=== PATIENT | female | born 1940 | race Hispanic/Latino ===

== ENCOUNTER 2018-02-01 17:19 | Inpatient (IN) | payer MEDICARE, MEDICAID ==
[2018-02-01] MEDS ORDERED: Cefepime IV 2 gm in NS 2 GM/100 ML BAG IVPB STA (17:33)
[2018-02-01] MEDS ORDERED: Sodium Chloride 0.9% 1,000 ML IV STA ×3 (17:34→18:46)
[2018-02-01] MEDS: Albuterol-Ipratrop 3 mg / 0.5 (3 ml) UD IH SCH ×3 (17:50→18:28)
--- NOTE | 2018-02-01 17:52 | RAD ---
HISTORY: Sepsis Patient COMPARISON: CT chest without contrast from 12/12/2016. FINDINGS: LUNGS: The lungs are well inflated. There is mild pulmonary venous congestion. No focal consolidation PLEURA: No significant pleural effusion identified, no pneumothorax apparent. CARDIOVASCULAR: Normal. OSSEOUS STRUCTURES: No significant abnormalities. VISUALIZED UPPER ABDOMEN: Normal. OTHER FINDINGS: None. IMPRESSION: No active pulmonary disease.
[2018-02-01 18:04] LABS: RBC 4.05 10^6/uL (3.5-6.1); WHITE BLOOD COUNT 6.9 10^3/ul (4.5-11.0)
[2018-02-01 18:05] LABS: BASO # 0.03 K/mm3 (0.0-2.0); BASO % 0.4 % (0.0-3.0); EOS # 0.2 (0.0-0.7); EOS % 2.9 % (1.5-5.0); GRAN # 4.07 (1.4-6.5); GRAN % 58.7 % (50.0-68.0); HEMOGLOBIN 12.8 g/dL (12.0-16.0); LYMPH # 1.9 (1.2-3.4); MEAN CELL VOLUME 95.8 fl (80.0-105.0); MEAN CORPUSCULAR HEMOGLOBIN 31.6 pg (25.0-35.0); MEAN PLATELET VOLUME 10.3 fl (7.0-11.0); MONO # 0.7 (0.1-0.6); RED CELL DISTRIBUTION WIDTH 12.7 % (11.5-14.5)
[2018-02-01 18:10] LABS: ALB/GLOB RATIO 1.4 (1.1-1.8); ALBUMIN 3.9 g/dL (3.0-4.8); ALT/SGPT 39 U/L (7-56); AST/SGOT 34 U/L (14-36); BLOOD UREA NITROGEN 23 mg/dL (7-21); CALCIUM 9.1 mg/dL (8.4-10.5); GFR AFRICAN-AMERICAN > 60; GFR NON-AFRICAN AMERICAN 54; INR 1.11 (0.93-1.08); PROTHROMBIN TIME 12.7 SECONDS (9.4-12.5)
[2018-02-01 18:21] LABS: B-TYPE NATRIURETIC PEPTIDE 135 pg/mL (0-450); TROPONIN I < 0.01 ng/mL
[2018-02-01 18:30] LABS: VENOUS BLOOD GAS BASE EXCESS -7.4 mmol/L (0.0-2.0); VENOUS BLOOD GAS PO2 217 mm/Hg (30-55)
[2018-02-01 18:32] LABS: VENOUS BLOOD PH 7.17 (7.32-7.43)
--- NOTE | 2018-02-01 18:43 | ED PDOC ---
Arrival/HPI - General Historian: Family (daughter at bedside) - Critical Care Critical Care Minutes: 30 minutes - History of Present Illness Time/Duration: < month (3 weeks) Symptom Onset: Gradual Symptom Course: Unchanged Context: Home - General Time Seen by Provider: 02/01/18 17:24 - History of Present Illness Narrative History of Present Illness (Text): 02/01/18 18:38 77 year old female, whose history includes dementia, hypertension, and COPD, presents to the Emergency department due to fatigue, dizziness, and multiple falls over the last 3 weeks, as per daughter who is at bedside. Patient has also been coughing more than her baseline COPD cough. Patient has been on Prednisone intermittently for the cough. Today, patient was seen at Dr. Trinidad ' office and had her blood pressure measured to be 84/50; EMS repeated blood pressure and found it to be 110/57. While in the Emergency department, the patient is currently coughing. Patient denies any fever, chills, chest pain, shortness of breath, nausea, vomiting, diarrhea, urinary symptoms, back pain, neck pain, headache, or any other complaints. PMD: Dr. Trinidad (Bernardino Reis) Past Medical History - Provider Review Nursing Documentation Reviewed: Yes - Infectious Disease Hx of Infectious Diseases: None - Cardiac Hx Cardiac Disorders: Yes Hx Hypertension: Yes - Pulmonary Hx Respiratory Disorders: No - Neurological Hx Neurological Disorder: Yes Hx Dementia: Yes (memory loss/pt's daughter Shaila Huff is POA) - HEENT Hx HEENT Disorder: No - Renal Hx Renal Disorder: No - Endocrine/Metabolic Hx Endocrine Disorders: No - Hematological/Oncological Hx Blood Disorders: No - Integumentary Hx Dermatological Disorder: No - Musculoskeletal/Rheumatological Hx Musculoskeletal Disorders: Yes Hx Herniated Disk: Yes - Gastrointestinal Hx Gastrointestinal Disorders: No - Genitourinary/Gynecological Hx Genitourinary Disorders: Yes Hx Incontinence: Yes (urinary) - Psychiatric Hx Psychophysiologic Disorder: Yes Hx Depression: Yes Hx Substance Use: No - Past Surgical History Past Surgical History: No Previous - Anesthesia Hx Anesthesia: No - Suicidal Assessment Feels Threatened In Home Enviroment: No Family/Social History - Physician Review Nursing Documentation Reviewed: Yes Family/Social History: Unknown Family HX Smoking Status: Former Smoker Hx Alcohol Use: No Hx Substance Use: No Allergies/Home Meds Allergies/Adverse Reactions: Allergies No Known Allergies Allergy (Verified 02/01/18 17:31) Home Medications: Home Meds Medication Instructions Recorded Confirmed Donepezil HCl [Aricept] 10 mg PO DAILY 05/15/14 03/23/16 Multivitamin/Iron/Folic Acid 1 tab PO DAILY 06/20/15 03/23/16 [Centrum Complete Multivit Tab] Memantine HCl [Namenda] 10 mg PO DAILY 03/23/16 03/23/16 Review of Systems - Physician Review All systems were reviewed & negative as marked: Yes - Review of Systems Constitutional: Fatigue. absent: Fevers, Night Sweats Respiratory: Cough. absent: SOB Cardiovascular: absent: Chest Pain Gastrointestinal: absent: Diarrhea, Nausea, Vomiting Genitourinary Female: absent: Dysuria Musculoskeletal: absent: Back Pain, Neck Pain Neurological: Dizziness. absent: Headache Physical Exam Vital Signs Reviewed: Yes Temperature: Afebrile Blood Pressure: Hypotensive Pulse: Regular Respiratory Rate: Normal Appearance: Positive for: Well-Appearing, Non-Toxic, Comfortable, Other (obese) Pain Distress: None Mental Status: Positive for: Alert and Oriented X 3 - Systems Exam Head: Present: Atraumatic, Normocephalic Pupils: Present: PERRL Extroacular Muscles: Present: EOMI Conjunctiva: Present: Normal Mouth: Present: Moist Mucous Membranes Neck: Present: Normal Range of Motion Respiratory/Chest: Present: Wheezes (diffuse). No: Retracting Cardiovascular: Present: Regular Rate and Rhythm, Normal S1, S2. No: Murmurs Abdomen: No: Tenderness, Distention, Peritoneal Signs Back: Present: Normal Inspection Upper Extremity: Present: Normal Inspection. No: Cyanosis, Edema Lower Extremity: Present: Normal Inspection. No: Edema Neurological: Present: GCS=15, CN II-XII Intact, Speech Normal Skin: Present: Warm, Dry, Normal Color. No: Rashes Psychiatric: Present: Alert, Oriented x 3, Normal Insight, Normal Concentration Vital Signs Temp Pulse Resp BP Pulse Ox 02/01/18 23:05 87 20 117/44 L 92 L 02/01/18 21:50 78 18 121/47 L 92 L 02/01/18 19:50 84 22 114/43 L 02/01/18 18:47 74 18 121/56 L 97 02/01/18 18:32 67 18 108/44 L 100 05/24/18 18:20 64 20 112/51 L 100 02/01/18 17:54 98.3 F 66 18 79/42 L 93 L Medical Decision Making - Critical Care Critical Care Minutes: 30 minutes ED Course and Treatment: my only involvement in this case was to place admission order 02/01/18 20:57 (Dileep Nichols) 02/01/18 18:47 Impression: 77 year old female presents to the Emergency department due to fatigue, dizziness, increased coughing, and multiple falls for the last 3 weeks. Differential Diagnosis included but are not limited to: COPD. Pneumonia, rule out sepsis. Plan: -- EKG -- Blood culture, urine culture -- Urinalysis -- ABG -- Cefepime, Solumedrol, Sodium Chloride IV fluids -- Reassess and disposition Progress Notes: Patient's blood pressures stable after 3 Liters of NS. Abx were given early due to possible sepsis. CXR was negative for PNA. Patient improved but still having COPD symptoms. Will admit to hospitalized service for Hypotension and COPD. (Bernardino Reis) - Lab Interpretations Microbiology Results: Microbiology Results 02/01/18 18:10 Blood Blood Culture - Final NO GROWTH AFTER 5 DAYS 02/01/18 18:10 Blood Gram Stain - Final TEST NOT PERFORMED 02/01/18 17:40 Blood Blood Culture - Final NO GROWTH AFTER 5 DAYS 02/01/18 17:40 Blood Gram Stain - Final TEST NOT PERFORMED Lab Results: 02/01/18 17:42 02/01/18 17:42 Lab Results 02/01/18 19:30: pCO2 42, pO2 57.0 L, HCO3 24.3, ABG pH 7.37, ABG Total CO2 25.6 , ABG O2 Saturation 94.5 L, ABG O2 Content 15.4, ABG Base Excess -1.0, ABG Hemoglobin 11.9, ABG Carboxyhemoglobin 2.0 H, POC ABG HHb (Measured) 5.3 H, ABG Methemoglobin 0.7, ABG O2 Capacity 16.3, Hgb O2 Saturation 91.9 L, FiO2 21.0 02/01/18 17:52: pO2 217 H, VBG pH 7.17 L*, VBG pCO2 60.0, VBG HCO3 21.9, VBG Total CO2 23.7, VBG O2 Sat (Calc) 99.7 H, VBG Base Excess -7.4 L, Glucose 166 H , Lactate 1.9, FiO2 21.0, Sodium 119.0 L*, Chloride 102.0 02/01/18 17:42: Sodium 141, Potassium 4.0, Chloride 102, Carbon Dioxide 27, Anion Gap 16, BUN 23 H, Creatinine 1.0, Est GFR ( Amer) > 60, Est GFR ( Non-Af Amer) 54, Random Glucose 159 H, Calcium 9.1, Phosphorus 3.3, Magnesium 2.1, Total Bilirubin 0.5, AST 34, ALT 39, Alkaline Phosphatase 81, Troponin I < 0.01, NT-Pro-B Natriuret Pep 135, Total Protein 6.7, Albumin 3.9, Globulin 2.8, Albumin/Globulin Ratio 1.4 02/01/18 17:42: PT 12.7 H, INR 1.11 H, APTT 33.0 02/01/18 17:42: Procalcitonin < 0.05 L 02/01/18 17:42: WBC 6.9, RBC 4.05, Hgb 12.8, Hct 38.8, MCV 95.8, MCH 31.6, MCHC 33.0, RDW 12.7, Plt Count 245, MPV 10.3, Gran % 58.7, Lymph % (Auto) 28.0, [place] % (Auto) 10.0 H, Eos % (Auto) 2.9, Baso % (Auto) 0.4, Gran # 4.07, Lymph # (Auto ) 1.9, [place] # (Auto) 0.7 H, Eos # (Auto) 0.2, Baso # (Auto) 0.03 - RAD Interpretation Narrative RAD Interpretations (Text): 02/01/2018 17:50:15 Chest X-ray FINDINGS: LUNGS: The lungs are well inflated. There is mild pulmonary venous congestion. No focal consolidation PLEURA: No significant pleural effusion identified, no pneumothorax apparent. CARDIOVASCULAR: Normal. OSSEOUS STRUCTURES: No significant abnormalities. VISUALIZED UPPER ABDOMEN: Normal. OTHER FINDINGS: None. IMPRESSION: No active pulmonary disease. (Bernardino Reis) Radiology Orders: 02/01/18 17:33 CHEST PORTABLE [RAD] Stat - Medication Orders Current Medication Orders: Discontinued Medications Acetaminophen (Tylenol 325mg Tab) 650 mg PO STAT STA Stop: 02/02/18 20:04 Last Admin: 02/02/18 20:16 Dose: 650 mg MAR Pain/Vitals Document 02/02/18 20:16 TTC (Rec: 02/02/18 20:16 TTC [id number]) Pain Reassessment Is This A Pain ReAssessment? No Presence of Pain Presence of Pain Yes Acetaminophen (Tylenol 325mg Tab) 650 mg PO ONCE ONE Stop: 02/03/18 11:50 Last Admin: 02/03/18 11:54 Dose: 650 mg MAR Pain/Vitals Document 02/03/18 11:54 VM (Rec: 02/03/18 11:55 VM [id number]) Presence of Pain Presence of Pain Yes Location Pain Location Body Site Back Alleviating Factors Medication Acetylcysteine (Acetylcysteine 20%) 1 ml IH ONCE ONE Stop: 02/02/18 12:51 Albuterol/Ipratropium (Duoneb 3 Mg/0.5 Mg (3 Ml) Ud) 3 ml IH Q15M [facility] Stop: 02/01/18 18:16 Last Admin: 02/01/18 18:28 Dose: 3 ml Albuterol/Ipratropium (Duoneb 3 Mg/0.5 Mg (3 Ml) Ud) 3 ml IH Q4H [facility] Stop: 02/02/18 03:46 Last Admin: 02/01/18 20:01 Dose: 3 ml Ciprofloxacin (Ciloxan 0.3% Ophth Soln) 2 drop OS Q4 [facility] Last Admin: 02/03/18 09:00 Dose: 2 drop Diazepam (Valium) 5 mg PO ONCE ONE PRN Reason: Protocol Stop: 02/03/18 02:42 Last Admin: 02/03/18 02:55 Dose: 5 mg Diphenhydramine HCl (Benadryl) 12.5 mg IVP ONCE ONE Stop: 02/02/18 04:46 Last Admin: 02/02/18 04:56 Dose: 12.5 mg IVP Administration Document 02/02/18 04:56 PD (Rec: 02/02/18 04:57 PD [id number]) Charges for Administration # of IVP Administrations 1 Donepezil HCl (Aricept) 10 mg PO DAILY [facility] Last Admin: 02/03/18 09:54 Dose: 10 mg Guaifenesin (Robitussin) 200 mg PO Q4H PRN PRN Reason: Cough and congestion Last Admin: 02/02/18 02:02 Dose: 200 mg Heparin Sodium (Porcine) (Heparin) 5,000 units SC Q8H KIKE PRN Reason: Protocol Last Admin: 02/03/18 05:00 Dose: 5,000 units Subcutaneous Administrations Document 02/03/18 05:00 TTC (Rec: 02/03/18 06:25 TTC [id number]) Charges for Administration # of Subcutaneous Administrations 1 Cefepime HCl (Maxipime 2gm) 2 gm in 100 mls @ 100 mls/hr IVPB STAT STA PRN Reason: Protocol Stop: 02/01/18 18:32 Last Admin: 02/01/18 18:14 Dose: 100 mls/hr eMAR Start Stop Document 02/01/18 18:14 [email or web address] (Rec: 02/01/18 18:14 [email or web address] [id number]) Intravenous Solution Start Date 02/01/18 Start Time 18:14 End Date 02/01/18 Sodium Chloride (Sodium Chloride 0.9%) 1,000 mls @ 999 mls/hr IV .Q1H1M STA Stop: 02/01/18 18:34 Last Admin: 02/01/18 18:13 Dose: 999 mls/hr eMAR Start Stop Document 02/01/18 18:13 [email or web address] (Rec: 02/01/18 18:13 [email or web address] [id number]) Intravenous Solution Start Date 02/01/18 Start Time 18:13 End Date 02/01/18 Sodium Chloride (Sodium Chloride 0.9%) 1,000 mls @ 999 mls/hr IV .Q1H1M STA Stop: 02/01/18 19:13 Last Admin: 02/01/18 19:26 Dose: 999 mls/hr eMAR Start Stop Document 02/01/18 19:26 [email or web address] (Rec: 02/01/18 19:27 [email or web address] [id number]) Intravenous Solution Start Date 02/01/18 Start Time 18:13 End Date 02/01/18 Sodium Chloride (Sodium Chloride 0.9%) 1,000 mls @ 999 mls/hr IV .Q1H1M STA Stop: 02/01/18 19:46 Last Admin: 02/01/18 19:27 Dose: 999 mls/hr eMAR Start Stop Document 02/01/18 19:27 [email or web address] (Rec: 02/01/18 19:27 [email or web address] [id number]) Intravenous Solution Start Date 02/01/18 Start Time 18:46 End Date 02/01/18 Cefepime HCl (Maxipime 1gm) 1 gm in 100 mls @ 100 mls/hr IVPB Q24H KIKE PRN Reason: Protocol Last Admin: 02/02/18 20:30 Dose: 100 mls/hr eMAR Start Stop Document 02/02/18 20:30 TTC (Rec: 02/02/18 22:10 TTC [id number]) Intravenous Solution Start Date 02/02/18 Start Time 20:30 End Date 02/02/18 End time 21:30 Total Infusion Time 60 Sodium Chloride (Sodium Chloride 0.9%) 1,000 mls @ 100 mls/hr IV .Q10H KIKE Last Admin: 02/02/18 10:29 Dose: 100 mls/hr eMAR Start Stop Document 02/02/18 10:29 [email or web address] (Rec: 02/02/18 10:29 [email or web address] [id number]) Intravenous Solution Start Date 02/02/18 Start Time 10:29 Memantine (Namenda) 10 mg PO DAILY KIKE Last Admin: 02/03/18 09:54 Dose: 10 mg Methylprednisolone (Solu-Medrol) 125 mg IVP STAT STA Stop: 02/01/18 17:35 Last Admin: 02/01/18 18:13 Dose: 125 mg IVP Administration Document 02/01/18 18:13 [email or web address] (Rec: 02/01/18 18:13 [email or web address] [id number]) Charges for Administration # of IVP Administrations 1 Methylprednisolone (Solu-Medrol) 40 mg IVP Q12H KIKE Last Admin: 02/02/18 20:30 Dose: 40 mg IVP Administration Document 02/02/18 20:30 TTC (Rec: 02/02/18 22:09 TTC [id number]) Charges for Administration # of IVP Administrations 1 Multivitamins/Minerals (Therapeutic-M Tab) 1 tab PO 0800 KIKE Last Admin: 02/03/18 09:54 Dose: 1 tab Oxycodone/Acetaminophen (Percocet 10/325 Mg Tab) 1 tab PO STAT STA Stop: 02/03/18 02:19 Last Admin: 02/03/18 02:26 Dose: 1 tab MAR Pain Assessment Document 02/03/18 02:26 [facility] (Rec: 02/03/18 02:26 [facility] [id number]) Pain Reassessment Is this a pain reassessment? No Sleep Is patient sleeping during reassessment? Yes Pain Scale Used Pain Scale Used Numeric Location Left, Right or Bilateral Bilateral Pain Location Body Site Back - Scribe Statement The provider has reviewed the documentation as recorded by the Scribe - Scribe Statement Irvin Piña Provider Scribe Attestation: All medical record entries made by the Scribe were at my direction and personally dictated by me. I have reviewed the chart and agree that the record accurately reflects my personal performance of the history, physical exam, medical decision making, and the department course for this patient. I have also personally directed, reviewed, and agree with the discharge instructions and disposition. (Bernardino Reis) Disposition/Present on Arrival - Present on Arrival Any Indicators Present on Arrival: No History of DVT/PE: No History of Uncontrolled Diabetes: No Urinary Catheter: No History Surgical Site Infection Following: None - Disposition Have Diagnosis and Disposition been Completed?: Yes Disposition Time: 19:00 Patient Plan: Admission - Disposition Diagnosis: COPD exacerbation Disposition: HOSPITALIZED Condition: GOOD
[2018-02-01] MEDS ORDERED: guaiFENesin 200 mg/10 ml Syrup UD PO PRN (19:31)
[2018-02-01 19:40] LABS: ARTERIAL BLOOD GAS HCO3 24.3 mmol/L (21-28); ARTERIAL BLOOD GAS HEMOGLOBIN 11.9 g/dL (11.7-17.4); ARTERIAL BLOOD GAS O2 CAPACITY 16.3 mL/dl (16-24); ARTERIAL BLOOD GAS O2 CONTENT 15.4 ML/dl (15-23); ARTERIAL BLOOD GAS O2 SAT 94.5 % (95-98); ARTERIAL BLOOD GAS PCO2 42 mm/Hg (35-45); ARTERIAL BLOOD GAS PH 7.37 (7.35-7.45); ARTERIAL BLOOD GAS TCO2 25.6 mmol.L (22-28)
[2018-02-01] MEDS ORDERED: Albuterol-Ipratrop 3 mg / 0.5 (3 ml) UD IH SCH (19:45)
[2018-02-01] MEDS: Sodium Chloride 0.9% 1,000 ML IV SCH (20:05)
[2018-02-01] MEDS: Cefepime 1gm in NS 100ml 1 GM/100 ML BAG IVPB SCH (20:06)
[2018-02-01] MEDS: MethylPREDNISolone 40 mg Vial IVP SCH (20:09)
--- NOTE | 2018-02-01 20:20 | CP.PCM.HP ---
<Erlin Woodward - Last Filed: 02/01/18 20:03> History of Present Illness - History of Present Illness History of Present Illness: HPI: Patient is a 77F with a PMH of Dementia and COPD who comes to the ED sent from her PMD office Dr. Trinidad after being found to have a SBP of 79. She was sent to the ED and was given 2L NS. After the 2L her pressure came up to an SBP of 121. Patient is pleasantly demented at baseline. Daughter is at bedside providing most of the history. Patient lives with her daughter who is the primary resident care coordinator. She goes to a adult day care daily but the daughter states since that time she has become more sick more frequent so they have decided to not return. She states that her mother has been having a productive cough for many years but has become worse recently. Was recently treated for CAP in Dr. Trinidad office. Denies any fever or chills. Denies any chest pain. No nausea or vomiting. One episode of diarrhea 2 weeks ago after treatment with the antibiotics. Has not noticed any increasing SOB. Occasionally loses continence. Patient has been falling as of late with a reported history of 4-5 falls in the past few weeks. Since that time she has been complaining of some back pain. Denies any saddle paresthesis. Patient does not have a history of poor oral intake and has a very good appetite. No other complaints at this time. Never hospitalized for COPD. ROS: HEENT: No headaches, hx of cataracts, no surgical intervention. No hearing problems. Runny Nose. No difficulty swallowing Heart: no chest pain Lungs: Cough productive sputum for years. Colorless. No SOB. GI: One episode of diarrhea after finishing antibiotic course 2 weeks ago. No nausea or vomiting. No abdominal pain : History of kidney stones and UTI. Occasional urinary incontinence Endo: No history of thyroid problems or diabetes MSK: Multiple falls recently. Since that time has been complaining of back pain. History of R. arm fracture that was never operated on Psych: History of depression PMD: Vivi PMH: Dementia, COPD, Depression, cataracts PSH: None FH: brother has diabetes, Mother had ovarian cancer SH: Previously heavy smoker for over 50 years. Denies alcohol and drug use All: Percocet makes the patient hallucinate Code Status: Patient has a living will but the daughter in not sure what it is. I told her to bring it in. Until that time the daughter would like her mother to be FULL CODE Present on Admission - Present on Admission Any Indicators Present on Admission: No Review of Systems - Review of Systems Review of Systems: per hpi Past Patient History - Infectious Disease Hx of Infectious Diseases: None - Past Social History Smoking Status: Former Smoker - CARDIAC Hx Cardiac Disorders: Yes Hx Hypertension: Yes - PULMONARY Hx Respiratory Disorders: No - NEUROLOGICAL Hx Neurological Disorder: Yes Hx Dementia: Yes (memory loss/pt's daughter Shaila Huff is POA) - HEENT Hx HEENT Problems: No - RENAL Hx Chronic Kidney Disease: No - ENDOCRINE/METABOLIC Hx Endocrine Disorders: No - HEMATOLOGICAL/ONCOLOGICAL Hx Blood Disorders: No - INTEGUMENTARY Hx Dermatological Problems: No - MUSCULOSKELETAL/RHEUMATOLOGICAL Hx Musculoskeletal Disorders: Yes Hx Herniated Disk: Yes - GASTROINTESTINAL Hx Gastrointestinal Disorders: No - GENITOURINARY/GYNECOLOGICAL Hx Genitourinary Disorders: Yes Hx Incontinence: Yes (urinary) - PSYCHIATRIC Hx Psychophysiologic Disorder: Yes Hx Depression: Yes Hx Substance Use: No - SURGICAL HISTORY Hx Surgeries: No - ANESTHESIA Hx Anesthesia: No Meds Allergies/Adverse Reactions: Allergies Allergy/AdvReac Type Severity Reaction Status Date / Time No Known Allergies Allergy Verified 02/01/18 17:31 Physical Exam - Constitutional Appears: Confused - Head Exam Head Exam: ATRAUMATIC, NORMAL INSPECTION, NORMOCEPHALIC - Eye Exam Eye Exam: EOMI, Normal appearance, PERRL Pupil Exam: NORMAL ACCOMODATION, PERRL - ENT Exam ENT Exam: Mucous Membranes Moist - Respiratory Exam Respiratory Exam: Rhonchi, NORMAL BREATHING PATTERN - Cardiovascular Exam Cardiovascular Exam: REGULAR RHYTHM - GI/Abdominal Exam GI & Abdominal Exam: Normal Bowel Sounds, Soft. absent: Distended, Tenderness - Extremities Exam Extremities exam: Positive for: normal inspection. Negative for: joint swelling , tenderness - Back Exam Back exam: NORMAL INSPECTION - Neurological Exam Neurological exam: Alert, CN II-XII Intact, Oriented x3 - Psychiatric Exam Psychiatric exam: Normal Affect, Normal Mood - Skin Skin Exam: Dry, Intact, Normal Color, Warm Results - Vital Signs Recent Vital Signs: Last Vital Signs Temp 98.3 F 02/01/18 17:54 Pulse 84 02/01/18 19:50 Resp 22 02/01/18 19:50 BP 114/43 L 02/01/18 19:50 Pulse Ox 97 02/01/18 18:47 - Labs Result Diagrams: 02/01/18 17:42 02/01/18 17:42 Labs: Laboratory Results - last 24 hr 02/01/18 02/01/18 02/01/18 17:42 17:42 17:42 WBC 6.9 RBC 4.05 Hgb 12.8 Hct 38.8 MCV 95.8 MCH 31.6 MCHC 33.0 RDW 12.7 Plt Count 245 MPV 10.3 Gran % 58.7 Lymph % (Auto) 28.0 [place] % (Auto) 10.0 H Eos % (Auto) 2.9 Baso % (Auto) 0.4 Gran # 4.07 Lymph # (Auto) 1.9 [place] # (Auto) 0.7 H Eos # (Auto) 0.2 Baso # (Auto) 0.03 PT 12.7 H INR 1.11 H APTT 33.0 pCO2 pO2 HCO3 ABG pH ABG Total CO2 ABG O2 Saturation ABG O2 Content ABG Base Excess ABG Hemoglobin ABG Carboxyhemoglobin POC ABG HHb (Measured) ABG Methemoglobin ABG O2 Capacity VBG pH VBG pCO2 VBG HCO3 VBG Total CO2 VBG O2 Sat (Calc) VBG Base Excess Hgb O2 Saturation Glucose Lactate FiO2 Sodium 141 Potassium 4.0 Chloride 102 Carbon Dioxide 27 Anion Gap 16 BUN 23 H Creatinine 1.0 Est GFR ( Amer) > 60 Est GFR (Non-Af Amer) 54 Random Glucose 159 H Calcium 9.1 Phosphorus 3.3 Magnesium 2.1 Total Bilirubin 0.5 AST 34 ALT 39 Alkaline Phosphatase 81 Troponin I < 0.01 NT-Pro-B Natriuret Pep 135 Total Protein 6.7 Albumin 3.9 Globulin 2.8 Albumin/Globulin Ratio 1.4 02/01/18 02/01/18 17:52 19:30 WBC RBC Hgb Hct MCV MCH MCHC RDW Plt Count MPV Gran % Lymph % (Auto) [place] % (Auto) Eos % (Auto) Baso % (Auto) Gran # Lymph # (Auto) [place] # (Auto) Eos # (Auto) Baso # (Auto) PT INR APTT pCO2 42 pO2 217 H 57.0 L HCO3 24.3 ABG pH 7.37 ABG Total CO2 25.6 ABG O2 Saturation 94.5 L ABG O2 Content 15.4 ABG Base Excess -1.0 ABG Hemoglobin 11.9 ABG Carboxyhemoglobin 2.0 H POC ABG HHb (Measured) 5.3 H ABG Methemoglobin 0.7 ABG O2 Capacity 16.3 VBG pH 7.17 L* VBG pCO2 60.0 VBG HCO3 21.9 VBG Total CO2 23.7 VBG O2 Sat (Calc) 99.7 H VBG Base Excess -7.4 L Hgb O2 Saturation 91.9 L Glucose 166 H Lactate 1.9 FiO2 21.0 21.0 Sodium 119.0 L* Potassium Chloride 102.0 Carbon Dioxide Anion Gap BUN Creatinine Est GFR ( Amer) Est GFR (Non-Af Amer) Random Glucose Calcium Phosphorus Magnesium Total Bilirubin AST ALT Alkaline Phosphatase Troponin I NT-Pro-B Natriuret Pep Total Protein Albumin Globulin Albumin/Globulin Ratio Assessment & Plan (1) Hypotension Assessment and Plan: 3L NS given in ED. BP now stable No fever, no tachycardia, no infiltrate on CXR UA Pending Will check EKG Q6H x3 and trops Q6H x3 F/U Blood culture F/U Urine culture Status: Resolved Priority: High (2) COPD exacerbation Assessment and Plan: Duonebs Q4H [place] Robitussin Solumedrol 40 IV Q12 Status: Acute (3) PNA (pneumonia) Assessment and Plan: CXR did not show any infiltrate, only mild congestion F/U Procal F/U legionella F/U strep ag F/U mycoplasma F/U flu Maxipime 1g Daily Status: Acute (4) Recurrent falls Assessment and Plan: PT/OT F/U Lumbar xray Fall precautions Status: Acute Priority: High (5) Dementia Assessment and Plan: Aricept 10 PO QD Namenda 10 PO QD Status: Chronic Priority: Low - Assessment and Plan (Free Text) Assessment: DVT PPX heparin sc Q8 SCD No GI PPX indicated at this time [employer] <Lucas Alcocer - Last Filed: 02/02/18 00:30> Results - Vital Signs Recent Vital Signs: Last Vital Signs Temp 98.1 F 02/02/18 00:01 Pulse 77 02/02/18 00:01 Resp 20 02/02/18 00:01 BP 144/61 02/02/18 00:01 Pulse Ox 93 L 02/02/18 00:01 - Labs Result Diagrams: 02/01/18 17:42 02/01/18 17:42 Labs: Laboratory Results - last 24 hr 02/01/18 21:35 Influenza Typ A,B (EIA) Negative for flu a/b Grp A Beta Strep Ag Negative Attending/Attestation - Attestation I have personally seen and examined this patient.: Yes I have fully participated in the care of the patient.: Yes I have reviewed all pertinent clinical information: Yes Notes (Text): 02/02/18 00:29 Patient was seen when she was in bed # 3 in the ER. Agree with history,physical examination, assessment and plan.
[2018-02-01] MEDS: Ciprofloxacin 0.3% OPTH SOLN OS SCH ×2 (21:41→23:57)
[2018-02-01 22:03] LABS: INFLUENZA A B NEGATIVE FOR FLU A/B (NEGATIVE)
[2018-02-02] MEDS ORDERED: Piperacillin/Tazobact 3.375 gm 100 ML IVPB SCH
[2018-02-02 01:32] VITALS: BMI 38.7
[2018-02-02] MEDS ORDERED: DiphenhydrAMINE 50 mg/ml Inj IVP ONE (04:45)
[2018-02-02] MEDS: Ciprofloxacin 0.3% OPTH SOLN OS SCH ×5 (04:57→20:30)
[2018-02-02 07:09] LABS: BASO # 0.01 K/mm3 (0.0-2.0); BASO % 0.1 % (0.0-3.0); GRAN # 6.81 (1.4-6.5); GRAN % 88.4 % (50.0-68.0); HEMOGLOBIN 11.6 g/dL (12.0-16.0); LYMPH # 0.8 (1.2-3.4); LYMPH % 10.1 % (22.0-35.0); MEAN CELL VOLUME 94.7 fl (80.0-105.0); MEAN CORPUSCULAR HEMOGLOBIN 30.7 pg (25.0-35.0); MEAN CORPUSCULAR HGB CONC 32.4 g/dl (31.0-37.0); MEAN PLATELET VOLUME 10.1 fl (7.0-11.0); MONO # 0.1 (0.1-0.6); MONO % 1.4 % (1.0-6.0); RBC 3.78 10^6/uL (3.5-6.1); RED CELL DISTRIBUTION WIDTH 12.5 % (11.5-14.5); WHITE BLOOD COUNT 7.7 10^3/ul (4.5-11.0)
[2018-02-02 07:27] LABS: TROPONIN I < 0.01 ng/mL
[2018-02-02 07:28] LABS: ALB/GLOB RATIO 1.3 (1.1-1.8); ALBUMIN 3.6 g/dL (3.0-4.8); ALT/SGPT 32 U/L (7-56); AST/SGOT 33 U/L (14-36); BLOOD UREA NITROGEN 16 mg/dL (7-21); CALCIUM 8.7 mg/dL (8.4-10.5); GFR AFRICAN-AMERICAN > 60; GFR NON-AFRICAN AMERICAN > 60
--- NOTE | 2018-02-02 07:50 | CARD ---
APPROVED REPORT EKG Measurement Heart [id number] <Conclusion> Normal sinus rhythm Normal ECG
--- NOTE | 2018-02-02 09:29 | CARD ---
APPROVED REPORT EKG Measurement Heart [id number] <Conclusion> Normal sinus rhythm Normal ECG
[2018-02-02] MEDS ORDERED: Vancomycin 1gm in NS 250ml 1 GM/250 ML BAG IVPB SCH (10:00)
[2018-02-02] MEDS: Multivitamin With Minerals Tab PO SCH (10:25)
[2018-02-02] MEDS: MethylPREDNISolone 40 mg Vial IVP SCH ×2 (10:26→20:30)
[2018-02-02] MEDS: Sodium Chloride 0.9% 1,000 ML IV SCH (10:29)
[2018-02-02 11:11] LABS: URINE BILIRUBIN NEGATIVE (NEGATIVE); URINE BLOOD NEGATIVE (NEGATIVE); URINE GLUCOSE (UA) NEGATIVE (NEGATIVE); URINE LEUKOCYTE ESTERASE NEGATIVE Leu/uL (NEGATIVE); URINE PROTEIN NEGATIVE mg/dL (<30 mg/dL); URINE UROBILINOGEN 0.2 E.U./dL (<1 E.U./dL)
[2018-02-02 11:56] LABS: URINE APPEARANCE CLEAR (CLEAR); URINE COLOR YELLOW (YELLOW)
--- NOTE | 2018-02-02 12:22 | RAD ---
PROCEDURE: Radiographs of the Lumbar Spine. HISTORY: r/o fracture COMPARISON: No prior. FINDINGS: BONES: Normal alignment. No listhesis. No fracture. DISC SPACES: Unremarkable. OTHER FINDINGS: Mild facet arthropathy in the lower lumbar spine IMPRESSION: Mild facet arthropathy
--- NOTE | 2018-02-02 12:22 | RAD ---
HISTORY: r/o fracture COMPARISON: No prior. FINDINGS: BONES: Alignment maintained. No fracture. DISC SPACES: Normal. SOFT TISSUES: Normal. OTHER FINDINGS: None. IMPRESSION: Normal radiographs of the thoracic spine.
[2018-02-02] MEDS ORDERED: Acetylcysteine 20% Inhal Soln (4ml) IH ONE (12:50)
--- NOTE | 2018-02-02 13:42 | CP.PCM.PN ---
Subjective - Date & Time of Evaluation Date of Evaluation: 02/02/18 Time of Evaluation: 13:37 - Subjective Subjective: Patient seen and examined at bedside. Continues to cough. No other complaints at this time. Denies fevers or chills. No SOB or chest pain Objective - Vital Signs/Intake and Output Vital Signs (last 24 hours): Temp Pulse Resp BP Pulse Ox 98.6 F 67 20 143/58 L 95 02/02/18 12:00 02/02/18 12:00 02/02/18 12:00 02/02/18 12:00 02/02/18 11:19 Intake and Output: 02/02/18 02/02/18 06:59 18:59 Intake Total 120 Output Total 200 Balance -80 - Medications Medications: Current Medications Ciprofloxacin (Ciloxan 0.3% Ophth Soln) 2 drop OS Q4 [facility] Last Admin: 02/02/18 12:24 Dose: 2 drop Donepezil HCl (Aricept) 10 mg PO DAILY [facility] Last Admin: 02/02/18 10:25 Dose: 10 mg Guaifenesin (Robitussin) 200 mg PO Q4H PRN PRN Reason: Cough and congestion Last Admin: 02/02/18 02:02 Dose: 200 mg Heparin Sodium (Porcine) (Heparin) 5,000 units SC Q8H [facility] PRN Reason: Protocol Last Admin: 02/02/18 12:23 Dose: 5,000 units Cefepime HCl (Maxipime 1gm) 1 gm in 100 mls @ 100 mls/hr IVPB Q24H [facility] PRN Reason: Protocol Last Admin: 02/01/18 20:06 Dose: 100 mls/hr Sodium Chloride (Sodium Chloride 0.9%) 1,000 mls @ 100 mls/hr IV .Q10H [facility] Last Admin: 02/02/18 10:29 Dose: 100 mls/hr Memantine (Namenda) 10 mg PO DAILY [facility] Last Admin: 02/02/18 10:25 Dose: 10 mg Methylprednisolone (Solu-Medrol) 40 mg IVP Q12H [facility] Last Admin: 02/02/18 10:26 Dose: 40 mg Multivitamins/Minerals (Therapeutic-M Tab) 1 tab PO 0800 [facility] Last Admin: 02/02/18 10:25 Dose: 1 tab - Labs Labs: 02/02/18 06:00 02/02/18 06:00 PT 12.7 SECONDS (9.4-12.5) H 02/01/18 17:42 INR 1.11 (0.93-1.08) H 02/01/18 17:42 APTT 33.0 Seconds (25.1-36.5) 02/01/18 17:42 - Constitutional Appears: Well - Head Exam Head Exam: ATRAUMATIC, NORMAL INSPECTION, NORMOCEPHALIC - Eye Exam Eye Exam: EOMI, Normal appearance, PERRL Pupil Exam: NORMAL ACCOMODATION, PERRL - ENT Exam ENT Exam: Mucous Membranes Moist, Normal Exam - Neck Exam Neck Exam: Full ROM, Normal Inspection. absent: Lymphadenopathy - Respiratory Exam Respiratory Exam: Rhonchi. absent: Wheezes - Cardiovascular Exam Cardiovascular Exam: REGULAR RHYTHM, +S1, +S2. absent: Murmur - GI/Abdominal Exam GI & Abdominal Exam: Soft, Normal Bowel Sounds. absent: Tenderness - Extremities Exam Extremities Exam: Full ROM, Normal Capillary Refill, Normal Inspection. absent : Joint Swelling, Pedal Edema - Back Exam Back Exam: NORMAL INSPECTION - Neurological Exam Neurological Exam: Alert, Awake, CN II-XII Intact, Normal Gait, Oriented x3 - Psychiatric Exam Psychiatric exam: Normal Affect, Normal Mood - Skin Skin Exam: Dry, Intact, Normal Color, Warm Assessment and Plan - Assessment and Plan (Free Text) Assessment: (1) Hypotension Assessment and Plan: 3L NS given in ED. BP now stable No fever, no tachycardia, no infiltrate on CXR UA negative Trop and Ekg unremarkable Blood culture negative Urine culture negative Status: Resolved Priority: High (2) COPD exacerbation Assessment and Plan: Duonebs Q4H [place] Robitussin Solumedrol 40 IV Q12 Status: Acute (3) PNA (pneumonia) Assessment and Plan: CXR did not show any infiltrate, only mild congestion Procal negative F/U legionella strep ag negative F/U mycoplasma flu negative F/U chest CT Pulm consult Maxipime 1g Daily Status: Acute (4) Recurrent falls Assessment and Plan: PT/OT Lumbar xray negative Fall precautions Status: Acute Priority: High (5) Dementia Assessment and Plan: Aricept 10 PO QD Namenda 10 PO QD Status: Chronic Priority: Low
--- NOTE | 2018-02-02 14:36 | CT ---
PROCEDURE: CT Chest without contrast HISTORY: R/O Inflitrate COMPARISON: 12/12/2016 TECHNIQUE: Contiguous axial images were obtained through the chest without intravenous contrast enhancement. Sagittal and coronal reconstructions were performed. Radiation dose (DLP): 848 mGy-cm. This CT exam was performed using one or more of the following dose reduction techniques: Automated exposure control, adjustment of the mA and/or kV according to patient size, and/or use of iterative reconstruction technique. FINDINGS: LUNGS: Clear lungs. Visualized airway clear. MEDIASTINUM: Unremarkable thoracic aorta. No aneurysm. Normal sized heart. Main pulmonary artery unremarkable. No vascular congestion. No lymphadenopathy. 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 This measures 35 mm in height and 48 mm AP and 47 mm wide. No pleural fluid. No pneumothorax. BONES: No fracture. No destructive lesion. UPPER ABDOMEN: Grossly unremarkable. OTHER FINDINGS: None. 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 This is unchanged. The study is otherwise unremarkable
[2018-02-02] MEDS: Cefepime 1gm in NS 100ml 1 GM/100 ML BAG IVPB SCH (20:30)
[2018-02-03] MEDS: Ciprofloxacin 0.3% OPTH SOLN OS SCH ×3 (00:30→09:00)
[2018-02-03] MEDS ORDERED: Oxycodone/Acetaminophen 10/325 mg Tab PO STA (02:18)
--- NOTE | 2018-02-03 04:13 | CON ---
DATE: 02/02/2018 CARDIOLOGY CONSULT HISTORY OF PRESENT ILLNESS: The patient is a 77-year-old female, who has a history of Alzheimer's dementia, hypertension, chronic obstructive lung disease, who was brought in because of dizziness and multiple falls. The patient also according to the daughter has been experiencing coughing and wheezing. According to the daughter, there is no prior history of heart attack or coronary intervention in the past. SOCIAL HISTORY: The patient is a former smoker. She lives in her own apartment, but the daughter lives in upstairs apartment. MEDICATIONS: Aricept 10 mg once a day, heparin 5000 units subcutaneous every 8 hours, cefepime 1 g intravenously daily, Namenda 10 mg once a day, normal saline 100 mL an hour, Solu-Medrol 40 mg intravenous twice a day, multivitamin one tablet once a day. REVIEW OF SYSTEMS: No fever or chills. No nausea or vomiting. No history of seizures according to the daughter. PHYSICAL EXAMINATION: GENERAL: The patient is an elderly female, who does not appear to be in any acute distress. VITAL SIGNS: Blood pressure 143/58, heart rate 67, temperature 98.6, respirations 20. HEENT: Normocephalic. NECK: No JVD. CHEST: Clear. HEART: S1 and S2, regular. ABDOMEN: Soft. EXTREMITIES: Trace leg edema. LABORATORY DATA: Today's hemoglobin and hematocrit 11.6 and 35.8, white count of 7.7, platelet count 223,000. SMA-7: Sodium 144, potassium 4.2, chloride 109, CO2 24, glucose 175, BUN 16, creatinine 0.7. Three sets of troponins are negative. INR is 1.11. PTT 33. Influenza type A and B, EIA is negative. Chest x-ray revealed mild cardiomegaly, possible left lower lobe infiltrate and/or effusion. Mild CHF. Thoracic spine CAT scan, normal study. 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 Lumbosacral spine, mild facet atrophy. EKG: Two EKGs revealed normal sinus rhythm. ASSESSMENT: 1. Hypertension, reported to have a systolic blood pressure [address] 2. History of multiple falls. 3. Chronic obstructive lung disease. 4. Alzheimer's dementia. RECOMMENDATIONS: Continue current Aricept at 10 mg once a day, subcutaneous heparin 5000 units every 8 hours, IV Maxipime at 1 g daily, continue Namenda 10 mg once a day, Solu-Medrol 40 mg once a day, multivitamin at one tablet once a day. Obtain head CT scan without contrast, carotid Doppler as well as an echocardiogram. May consider obtaining two sets of blood culture. Preet Johnson MD
[2018-02-03 06:45] VITALS: RESP 19; O2SAT 95
[2018-02-03] MEDS: Multivitamin With Minerals Tab PO SCH (09:54)
--- NOTE | 2018-02-03 10:31 | CT ---
PROCEDURE: CT HEAD WITHOUT CONTRAST. HISTORY: Falls COMPARISON: Comparison made with prior study 03/23/2016. TECHNIQUE: Axial computed tomography images were obtained through the head/brain without intravenous contrast. Radiation dose: Total exam DLP = 874.90 mGy-cm. This CT exam was performed using one or more of the following dose reduction techniques: Automated exposure control, adjustment of the mA and/or kV according to patient size, and/or use of iterative reconstruction technique. FINDINGS: HEMORRHAGE: No acute parenchymal, subarachnoid or extra-axial hemorrhage. BRAIN: . Mild chronic periventricular white matter ischemic changes seen extending peripherally into the deep white matter both cerebral hemispheres. Moderate generalized volume loss. VENTRICLES: Unremarkable. No hydrocephalus. CALVARIUM: Unremarkable. PARANASAL SINUSES: There is a small fluid level seen in the left maxillary antrum associate with a minimal mucosal thickening. There is also minor mucosal thickening seen in the within 1 or 2 left-sided ethmoid air cells. . Minor mucosal thickening. MASTOID AIR CELLS: There is partial opacification few right inferior mastoid air cells OTHER FINDINGS: None. IMPRESSION: No acute intracranial hemorrhage. Mild chronic white matter ischemic changes. Moderate generalized the the volume loss. Small fluid level left maxillary antrum
--- NOTE | 2018-02-03 11:38 | CP.PCM.DIS ---
Provider - Provider Date of Admission: 02/01/18 20:54 Attending physician: Clyde Cota MD Primary care physician: Dileep Trinidad MD Consults: Pulm: Joshua Time Spent in preparation of Discharge (in minutes): 45 Hospital Course - Lab Results Lab Results: Micro Results 02/01/18 21:35 Throat Group A Strep Throat Culture - Final NO BETA STREP GROUP A ISOLATED. Most Recent Lab Values WBC 7.7 10^3/ul (4.5-11.0) 02/02/18 06:00 RBC 3.78 10^6/uL (3.5-6.1) 02/02/18 06:00 Hgb 11.6 g/dL (12.0-16.0) L 02/02/18 06:00 Hct 35.8 % (36.0-48.0) L 02/02/18 06:00 MCV 94.7 fl (80.0-105.0) 02/02/18 06:00 MCH 30.7 pg (25.0-35.0) 02/02/18 06:00 MCHC 32.4 g/dl (31.0-37.0) 02/02/18 06:00 RDW 12.5 % (11.5-14.5) 02/02/18 06:00 Plt Count 223 10^3/uL (120.0-450.0) 02/02/18 06:00 MPV 10.1 fl (7.0-11.0) 02/02/18 06:00 Gran % 88.4 % (50.0-68.0) H 02/02/18 06:00 Lymph % (Auto) 10.1 % (22.0-35.0) L 02/02/18 06:00 [place] % (Auto) 1.4 % (1.0-6.0) 02/02/18 06:00 Eos % (Auto) 0.0 % (1.5-5.0) L 02/02/18 06:00 Baso % (Auto) 0.1 % (0.0-3.0) 02/02/18 06:00 Gran # 6.81 (1.4-6.5) H 02/02/18 06:00 Lymph # (Auto) 0.8 (1.2-3.4) L 02/02/18 06:00 [place] # (Auto) 0.1 (0.1-0.6) 02/02/18 06:00 Eos # (Auto) 0.0 (0.0-0.7) 02/02/18 06:00 Baso # (Auto) 0.01 K/mm3 (0.0-2.0) 02/02/18 06:00 PT 12.7 SECONDS (9.4-12.5) H 02/01/18 17:42 INR 1.11 (0.93-1.08) H 02/01/18 17:42 APTT 33.0 Seconds (25.1-36.5) 02/01/18 17:42 pCO2 42 mm/Hg (35-45) 02/01/18 19:30 pO2 57.0 mm/Hg (80-100) L 02/01/18 19:30 HCO3 24.3 mmol/L (21-28) 02/01/18 19:30 ABG pH 7.37 (7.35-7.45) 02/01/18 19:30 ABG Total CO2 25.6 mmol.L (22-28) 02/01/18 19:30 ABG O2 Saturation 94.5 % (95-98) L 02/01/18 19:30 ABG O2 Content 15.4 ML/dl (15-23) 02/01/18 19:30 ABG Base Excess -1.0 mmol/L (-2.0-3.0) 02/01/18 19:30 ABG Hemoglobin 11.9 g/dL (11.7-17.4) 02/01/18 19:30 ABG Carboxyhemoglobin 2.0 % (0.5-1.5) H 02/01/18 19:30 POC ABG HHb (Measured) 5.3 % (0-5) H 02/01/18 19:30 ABG Methemoglobin 0.7 % (0.0-3.0) 02/01/18 19:30 ABG O2 Capacity 16.3 mL/dl (16-24) 02/01/18 19:30 VBG pH 7.17 (7.32-7.43) L* 02/01/18 17:52 VBG pCO2 60.0 (40-60) 02/01/18 17:52 VBG HCO3 21.9 mmol/l (21-28) 02/01/18 17:52 VBG Total CO2 23.7 mmol.L (22-28) 02/01/18 17:52 VBG O2 Sat (Calc) 99.7 % (40-65) H 02/01/18 17:52 VBG Base Excess -7.4 mmol/L (0.0-2.0) L 02/01/18 17:52 Hgb O2 Saturation 91.9 % (95.0-98.0) L 02/01/18 19:30 Sodium 119.0 mmol/L (132-148) L* 02/01/18 17:52 Chloride 102.0 mmol/L (98-107) 02/01/18 17:52 Glucose 166 mg/dl (65-105) H 02/01/18 17:52 Lactate 1.9 mmol/L (0.7-2.1) 02/01/18 17:52 FiO2 21.0 % 02/01/18 19:30 Sodium 144 mmol/L (132-148) 02/02/18 06:00 Potassium 4.2 mmol/L (3.6-5.0) 02/02/18 06:00 Chloride 109 mmol/L (98-107) H 02/02/18 06:00 Carbon Dioxide 24 mmol/L (21-33) 02/02/18 06:00 Anion Gap 15 (10-20) 02/02/18 06:00 BUN 16 mg/dL (7-21) 02/02/18 06:00 Creatinine 0.7 mg/dl (0.7-1.2) 02/02/18 06:00 Est GFR ( Amer) > 60 02/02/18 06:00 Est GFR (Non-Af Amer) > 60 02/02/18 06:00 Random Glucose 175 mg/dL (70-110) H 02/02/18 06:00 Calcium 8.7 mg/dL (8.4-10.5) 02/02/18 06:00 Phosphorus 2.9 mg/dL (2.5-4.5) 02/02/18 06:00 Magnesium 2.1 mg/dL (1.7-2.2) 02/02/18 06:00 Total Bilirubin 0.3 mg/dL (0.2-1.3) 02/02/18 06:00 AST 33 U/L (14-36) 02/02/18 06:00 ALT 32 U/L (7-56) 02/02/18 06:00 Alkaline Phosphatase 81 U/L (38-126) 02/02/18 06:00 Troponin I < 0.01 ng/mL 02/02/18 06:00 NT-Pro-B Natriuret Pep 135 pg/mL (0-450) 02/01/18 17:42 Total Protein 6.4 g/dL (5.8-8.3) 02/02/18 06:00 Albumin 3.6 g/dL (3.0-4.8) 02/02/18 06:00 Globulin 2.8 gm/dL 02/02/18 06:00 Albumin/Globulin Ratio 1.3 (1.1-1.8) 02/02/18 06:00 Procalcitonin < 0.05 NG/ML (0.19-0.49) L 02/01/18 17:42 Urine Color Yellow (YELLOW) 02/02/18 11:05 Urine Appearance Clear (CLEAR) 02/02/18 11:05 Urine pH 6.0 (4.7-8.0) 02/02/18 11:05 Ur Specific [place] >= 1.030 (1.005-1.035) 02/02/18 11:05 Urine Protein Negative mg/dL (<30 mg/dL) 02/02/18 11:05 Urine Glucose (UA) Negative mg/dL (NEGATIVE) 02/02/18 11:05 Urine Ketones Trace mg/dL (NEGATIVE) H 02/02/18 11:05 Urine Blood Negative (NEGATIVE) 02/02/18 11:05 Urine Nitrate Negative (NEGATIVE) 02/02/18 11:05 Urine Bilirubin Negative (NEGATIVE) 02/02/18 11:05 Urine Urobilinogen 0.2 E.U./dL (<1 E.U./dL) 02/02/18 11:05 Ur Leukocyte Esterase Negative Betty/uL (NEGATIVE) 02/02/18 11:05 Influenza Typ A,B (EIA) Negative for flu a/b (NEGATIVE) 02/01/18 21:35 Grp A Beta Strep Ag Negative (NEGATIVE) 02/01/18 21:35 - Hospital Course Hospital Course: On admission: HPI: Patient is a 77F with a PMH of Dementia and COPD who comes to the ED sent from her PMD office Dr. Trinidad after being found to have a SBP of 79. She was sent to the ED and was given 2L NS. After the 2L her pressure came up to an SBP of 121. Patient is pleasantly demented at baseline. Daughter is at bedside providing most of the history. Patient lives with her daughter who is the primary regular senior care provider. She goes to a adult day care daily but the daughter states since that time she has become more sick more frequent so they have decided to not return. She states that her mother has been having a productive cough for many years but has become worse recently. Was recently treated for CAP in Dr. Trinidad office. Denies any fever or chills. Denies any chest pain. No nausea or vomiting. One episode of diarrhea 2 weeks ago after treatment with the antibiotics. Has not noticed any increasing SOB. Occasionally loses continence. Patient has been falling as of late with a reported history of 4-5 falls in the past few weeks. Since that time she has been complaining of some back pain. Denies any saddle paresthesis. Patient does not have a history of poor oral intake and has a very good appetite. No other complaints at this time. Never hospitalized for COPD. Hospital course: Xrays of the back were negative. Chest CT did not show any infiltrate. No wheezing. Cough has become less. Head CT neagtive. Carotid Artery US unremarkable. PT reccomends home with services for the fall. Patient instructed to follow up with Pulm and primary doctor. Discharge Exam - Head Exam Head Exam: ATRAUMATIC, NORMAL INSPECTION, NORMOCEPHALIC - Eye Exam Eye Exam: EOMI, Normal appearance, PERRL Pupil Exam: NORMAL ACCOMODATION, PERRL - Respiratory Exam Respiratory Exam: Clear to PA & Lateral, UNREMARKABLE. absent: Wheezes - Cardiovascular Exam Cardiovascular Exam: REGULAR RHYTHM. absent: Tachycardia - GI/Abdominal Exam GI & Abdominal Exam: Normal Bowel Sounds, Soft, Unremarkable. absent: Distended , Tenderness - Extremities Exam Extremities exam: normal inspection - Back Exam Back exam: NORMAL INSPECTION - Neurological Exam Neurological exam: Alert, CN II-XII Intact, Normal Gait, Reflexes Normal - Psychiatric Exam Psychiatric exam: Normal Affect, Normal Mood - Skin Skin Exam: Dry, Intact, Normal Color, Warm Discharge Plan - Discharge Medications Prescriptions: Olmesartan Medoxomil [Benicar] 5 mg PO DAILY #30 tablet Prednisone See Taper PO DAILY 8 Days tab.ds.pk - Follow Up Plan Condition: GOOD Disposition: HOME/ ROUTINE Instructions: Preventing Falls in the Older Adult, Exacerbation of COPD, Dementia (DC) Additional Instructions: Please follow up with your regular doctor in 7-10 days. I have included a referral to a flanging machine operator Dr. Lewis. Please call the office to make an appointment. You will have home physical therapy services set up for you by this coming Monday. Please continue the following medications. 1. Ciprofloxacin 2 drops daily in each eye 2. Aricept 10 mg by mouth daily 3. Namenda 10mg by mouth daily 4. Multivitamin daily 5. Benicar 5mg by mouth daily 6. Prednisone taper as directed: 40mg by mouth daily for 2 days then 30mg by mouth daily for 2 days then 20mg by mouth daily for 2 days then 10mg daily for 2 days. Referrals: Dileep Trinidad MD [Primary Care Provider] - Mook Lewis MD [Staff Provider] -
--- NOTE | 2018-02-03 11:49 | US ---
PROCEDURE: Bilateral carotid artery duplex ultrasound HISTORY: Carotid stenosis PHYSICIAN(S): Hans Wilson MD. TECHNIQUE: Duplex sonography and color-flow Doppler were used to evaluate the carotid bifurcations and limited segments of the vertebral arteries bilaterally. The exam is limited by body habitus and tortuous vessels. FINDINGS: There is mild to moderate smooth heterogeneous plaque noted at the carotid bifurcations bilaterally. The peak systolic velocity in the proximal right internal carotid artery is 95 cm/sec. This corresponds to a 20 to 39% proximal right ICA stenosis. Normal systolic velocities are noted in the proximal right external carotid artery. There is antegrade flow in the right vertebral artery. The peak systolic velocity in the proximal left internal carotid artery is 99 cm/sec. This corresponds to a 20 to 39% proximal left ICA stenosis. Normal systolic velocities are noted in the proximal left external carotid artery. There is antegrade flow in the left vertebral artery. IMPRESSION: 1. Bilateral 20-39% proximal ICA stenoses. 2. Antegrade flow in both vertebral arteries. 3. Limited study
[2018-02-03 13:13] VITALS: BP 169/81; PULSE 80; TEMP 98.4
--- NOTE | 2018-02-03 14:01 | CON ---
DATE: 02/03/2018 PULMONARY CONSULTATION HISTORY OF PRESENT ILLNESS: A 77-year-old female with history of dementia, hypertension, chronic obstructive pulmonary disease, presented to emergency room with fatigue, dizziness and multiple falls over the last 3 weeks. She also had increasing cough. The history is given by daughter who is present at the bedside. She was given prednisone and antibiotics by her primary, Dr. Trinidad; however, the symptoms reoccurred and now she is coughing and more short of breath. PAST MEDICAL HISTORY: Positive for dementia, chronic obstructive pulmonary disease, chronic back pain, urinary incontinence, depression and dementia. HOME MEDICATIONS: Included Aricept, telmisartan and Namenda. FAMILY HISTORY: Negative for inherited diseases. SOCIAL HISTORY: She is a former smoker, quit in 2004. REVIEW OF SYSTEMS: Was conducted by reviewing all sources. Constitutional: Positive fatigue. Absent fevers and night sweats. Respiratory: See history of present illness. Cardiovascular: No chest pain. No palpitations, but history of hypertension. Gastrointestinal: No history of nausea, vomiting or diarrhea. The rest of the systems were reviewed and found to be negative. PHYSICAL EXAMINATION: GENERAL: She is awake, alert, sitting up in chair. VITAL SIGNS: As follows, her pulse is 84, respirations 20, blood pressure is 117/44, pulse oximetry is 92 on room air and 97 on nasal cannula, temperature is 98.3 HEENT: Examination of head, ear, nose and throat: Normocephalic and atraumatic. NECK: Supple with no jugular vein distentions. CARDIOVASCULAR: S1, S2. No S3. Regular. PULMONARY: Bilateral coarse rhonchi. No wheezing. GASTROINTESTINAL: Soft, nontender. No organomegaly. EXTREMITIES: 1+ pedal edema. NEUROLOGIC: Limited at the present time. SKIN: Warm, clear. No cyanosis. No skin rashes. LABORATORY DATA: Additional data reviewed. WBC 6.9, hemoglobin 12.8. Chemistries within normal limits except for slight elevated of blood sugar. Her arterial blood gas shows pH of 7.37, pCO2 of 42 and pO2 of 57 with oxygen saturation of 94%. ASSESSMENT: 1. Exacerbation of chronic obstructive pulmonary disease. 2. Significant bronchospasm. 3. Advanced dementia. PLAN: The patient's chest x-ray does not reveal any acute infiltrate. There are mild congestive changes bilaterally. There is no elevation of white count. The patient is starting treatment with intravenous antibiotics in the form of cefepime, nebulizer treatments. She is continuing with her Aricept and Namenda. The inhalation treatment now contains also Mucomyst to aid in expectoration. She is on intravenous steroids 40 mg every 12 hours. This can be tapered rapidly. Discharge planning per primary. We will follow shiloh Raymond Thomas MD
--- NOTE | 2018-02-03 16:52 | CARD ---
APPROVED REPORT EXAM: Two-dimensional and M-mode echocardiogram with Doppler and color Doppler. INDICATION 2D DIMENSIONS IVSd1.4 (0.7-1.1cm)LVDd4.7 (3.9-5.9cm) PWd1.1 (0.7-1.1cm)LVDs3.2 (2.5-4.0cm) FS (%) 31.3 %LVEF (%)59.0 (>50%) M-Mode DIMENSIONS Left Atrium (MM)3.80 (2.5-4.0cm)Aortic Root3.20 (2.2-3.7cm) Aortic Cusp Exc.2.20 (1.5-2.0cm) Aortic Valve AoV Peak Lzqzdygu153.0cm/Julio Peak GR.5mmHg Mitral Valve MV E Cjlbhygw73.3cm/sMV A Pgekwkop95.4cm/sE/A ratio0.7 TDI Lateral E' Peak V10.90cm/sMedial E' Peak V8.09cm/sE/Lateral E'5.3 E/Medial E'7.1 Tricuspid Valve TR Peak Aaxmrrir468cr/sRAP [id number] Peak Gr.24mmHg [id number] LEFT VENTRICLE The left ventricle is normal size. There is mild concentric left ventricular hypertrophy. The left ventricular function is normal. The left ventricular ejection fraction is within the normal range. There is normal LV segmental wall motion. Transmitral Doppler flow pattern is Grade I-abnormal relaxation pattern. RIGHT VENTRICLE The right ventricle is normal size. There is normal right ventricular wall thickness. The right ventricular systolic function is normal. ATRIA The left atrium size is normal. The right atrium size is normal. AORTIC VALVE The aortic valve is not well visualized. No aortic regurgitation is present. There is no aortic valvular stenosis. MITRAL VALVE The mitral valve is not well visualized. There is no mitral valve regurgitation noted. There is no mitral valve stenosis. TRICUSPID VALVE There is mild tricuspid regurgitation. There is mild pulmonary hypertension. GREAT VESSELS The aortic root is normal in size. PERICARDIAL EFFUSION There is a small loculated anterior pericardial effusion. <Conclusion> The left ventricle is normal size. There is mild concentric left ventricular hypertrophy. The left ventricular function is normal. The left ventricular ejection fraction is within the normal range. There is normal LV segmental wall motion. Transmitral Doppler flow pattern is Grade I-abnormal relaxation pattern. There is mild tricuspid regurgitation. There is mild pulmonary hypertension.
== END 2018-02-03 13:41 | disposition home or self-care (01) | DRG 315 ==
LOC: ED 17:19 → ERH 20:54 → 2RSO 23:47
PROVIDERS: ADMIT Internal Medicine; ATTEND Internal Medicine
DX: I95.9 Hypotension, unspecified (principal); J44.1 Chronic obstructive pulmonary disease with (acute) exacerbation; I10 Essential (primary) hypertension; G30.9 Alzheimer's disease, unspecified; F02.80 Dementia in other diseases classified elsewhere, unspecified severity, without behavioral disturbance, psychotic disturbance, mood disturbance, and anxiety; R29.6 Repeated falls; H26.9 Unspecified cataract; F32.9 Major depressive disorder, single episode, unspecified; J98.01 Acute bronchospasm; Z87.891 Personal history of nicotine dependence; Z80.41 Family history of malignant neoplasm of ovary; Z83.3 Family history of diabetes mellitus